=== PATIENT | female | born 2000 | race Two or more races ===

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

== ENCOUNTER → 2020-05-26 | Outpatient (REF) | payer OTHER ==
[~2020-05-26] MED LIST changes: +NEXI40CA PO; +SUCR1SS PO
== END ==
LOC: M SFHCWAGY 17:00
PROVIDERS: ATTEND Nurse Practitioner Women's Health
DX: R30.0 Dysuria (principal)

== ENCOUNTER → 2020-07-04 | Outpatient (CLI) | payer SELFPAY | LOC: M LABSMTC 10:45 | PROVIDERS: ATTEND Pediatrics | DX: Z20.828 Contact with and (suspected) exposure to other viral communicable diseases (principal) ==

== ENCOUNTER 2020-08-28 04:52 | Emergency (ER) | payer OTHER ==
[~2020-08-28] VITALS: Ht 162.6 cm; Wt 54.8 kg
[~2020-08-28 04:52] MED LIST changes: +GABA-282 PO; -GABA-843 PO
--- OUTSIDE RECORDS SUMMARY | 2020-08-28 04:56 | CCD ---
Author Author [facility] Organization [facility] Address Unknown Phone Unavailable Care Team Providers Care Faculty Member Name Role Phone [facility] JLAM Unavailable Unavailable Re-disclosure Warning The records that you are about to access may contain information from federally-assisted alcohol or drug abuse programs. If such information is present, then the following federally mandated warning applies: This information has been disclosed to you from records protected by federal confidentiality rules (42 CFR part 2). The federal rules prohibit you from making any further disclosure of this information unless further disclosure is expressly permitted by the written consent of the person to whom it pertains or as otherwise permitted by 42 CFR part 2. A general authorization for the release of medical or other information is NOT sufficient for this purpose. The Federal rules restrict any use of the information to criminally investigate or prosecute any alcohol or drug abuse patient.The records that you are about to access may contain highly sensitive health information, the redisclosure of which is protected by Article 27-F of the [facility] Public Health law. If you continue you may have access to information: Regarding HIV / AIDS; Provided by facilities licensed or operated by the [facility] Office of Mental Health; or Provided by the [facility] Office for People With Developmental Disabilities. If such information is present, then the following [facility] mandated warning applies: This information has been disclosed to you from confidential records which are protected by state law. State law prohibits you from making any further disclosure of this information without the specific written consent of the person to whom it pertains, or as otherwise permitted by law. Any unauthorized further disclosure in violation of state law may result in a fine or care home sentence or both. A general authorization for the release of medical or other information is NOT sufficient authorization for further disc losure. Family History Family Member Name Family Member Gender Family Member Status Date o f Status Description Data Source(s) Unknown Male Problem [facility] ([facility], ) Encounters Encounter Providers Location Date Indications Data Source(s ) Outpatient [address] [facility] [address] 05/26/2020 12:00:00 AM EDT eCW1 ([facility]) [facility] 01/14/2020 07:56:49 PM EDT [facility] Outpatient 10/30/2019 11:19:00 AM EDT [facility] Outpatient 10/15/2019 02:27:00 PM EDT [facility] Outpatient 10/07/2019 03:43:00 PM EST [facility] Outpatient 07/11/2019 02:16:00 PM EST [facility] Medications Medication Brand Name Start Date Product Form Dose Route Admi nistrative Instructions Pharmacy Instructions Status Indications Reaction Description Data Source(s) NITROFURANTOIN, MACROCRYSTALS 25 MG / Ni trofurantoin, Monohydrate 75 MG Oral Capsule Nitrofurantoin Monohyd Macro 100 MG Nitrofurantoin Monohyd Macro 100 MG 05/26/2020 12:00:00 AM EDT active Nitrofurantoin Monohyd Macro 100 MG eCW1 ([facility]) Insurance Providers Payer name Policy type / Coverage type Policy ID Covered libertarian ID Covered libertarian's relationship to shelley Policy Shelley Plan Information [facility] [id number] SP [id number] SELF PAY ONLY [id number] SP [id number] [facility] O [id number] S [id number] [facility] O [id number] S [id number] PMA MANAGEMENT [facility] [id number] SP [id number] PMA MANAGEMENT [facility] O [id number] O [id number] ANSI-Commercial [id number] ANSI-Medicaid [id number] [facility] [id number] Self [id number] ANSI-Commercial [id number] ANSI-Medicaid [id number] ANSI-Commercial [id number] ANSI-Medicaid [id number] ANSI-Medicaid [id number] ANSI-Commercial [id number] ANSI-Medicaid [id number] ANSI-Commercial [id number] [facility] [place] Medicaid [id number] Self [id number] ANSI-Commercial [id number] ANSI-Medicaid [id number] ANSI-Medicaid [id number] ANSI-Commercial [id number] ANSI-Commercial [id number] ANSI-Medicaid [id number] ANSI-Medicaid [id number] ANSI-Commercial [id number] JUVENAL [id number] ANSI-Medicaid [id number] ANSI-Commercial [id number] ANSI-Commercial [id number] ANSI-Medicaid [id number] ANSI-Medicaid [id number] ANSI-Commercial [id number] Results ID Date Data Source [id number] 08/20/2020 12:00:00 AM EST [facility] Name Value Range Interpretation Code Description Data Rosalinda rce(s) Supporting Document(s) SARS-CoV2 Rapid Antigen Negative [facility] This lab was ordered by [facility] and reported by [facility]. ID Date Data Source [id number] 08/17/2020 12:53:00 PM EST [facility] Name Value Range Interpretation Code Description Data Rosalinda rce(s) Supporting Document(s) SARS coronavirus 2 RNA Not Detected [facility] [place] This lab was ordered by [facility] and reported by [facility]. ID Date Data Source [id number] 08/10/2020 07:00:00 AM EST [facility] Name Value Range Interpretation Code Description Data Rosalinda rce(s) Supporting Document(s) SARS coronavirus 2 RNA Not Detected [facility] [place] This lab was ordered by [facility] and reported by [facility]. ID Date Data Source [id number] 08/03/2020 06:30:00 AM EST [facility] Name Value Range Interpretation Code Description Data Rosalinda rce(s) Supporting Document(s) SARS coronavirus 2 RNA [facility] This lab was ordered by [facility] and reported by [facility]. ID Date Data Source [id number] 07/27/2020 07:00:00 AM EST [facility] Name Value Range Interpretation Code Description Data Rosalinda rce(s) Supporting Document(s) SARS coronavirus 2 RNA [facility] This lab was ordered by [facility] and reported by [facility]. ID Date Data Source [id number] 07/26/2020 12:00:00 AM EST [facility] Name Value Range Interpretation Code Description Data Rosalinda rce(s) Supporting Document(s) SARS-CoV2 Rapid Antigen [facility] This lab was ordered by [facility] and reported by [facility]. ID Date Data Source [id number] 07/20/2020 12:14:00 PM EST [facility] Name Value Range Interpretation Code Description Data Rosalinda rce(s) Supporting Document(s) SARS coronavirus 2 RNA [facility] This lab was ordered by [facility] and reported by [facility]. ID Date Data Source [id number] 07/19/2020 12:00:00 AM EST [facility] Name Value Range Interpretation Code Description Data Rosalinda rce(s) Supporting Document(s) SARS-CoV2 Rapid Antigen [facility] This lab was ordered by [facility] and reported by [facility]. ID Date Data Source [id number] 07/04/2020 12:00:00 AM EST [facility] Name Value Range Interpretation Code Description Data Rosalinda rce(s) Supporting Document(s) 2019-nCoV RNA XXX JOE+probe-Imp [facility] This lab was ordered by [facility] and reported by [employer] [facility] ID Date Data Source [id number] 06/22/2020 10:51:00 AM EST [facility] Name Value Range Interpretation Code Description Data Rosalinda rce(s) Supporting Document(s) SARS coronavirus 2 RNA [facility] This lab was ordered by [facility] and reported by [facility]. ID Date Data Source [id number] 06/15/2020 06:30:00 AM EST [facility] Name Value Range Interpretation Code Description Data Rosalinda rce(s) Supporting Document(s) SARS coronavirus 2 RNA [facility] This lab was ordered by [facility] and reported by [facility]. ID Date Data Source [id number] 06/08/2020 09:30:00 AM EST [facility] Name Value Range Interpretation Code Description Data Rosalinda rce(s) Supporting Document(s) SARS coronavirus 2 RNA [facility] This lab was ordered by [facility] and reported by [facility]. ID Date Data Source URINE CULTURE 05/27/2020 04:15:01 AM EDT eCW1 ([facility]) Name Value Range Interpretation Code Description Data Rosalinda rce(s) Supporting Document(s) URINE CULTURE eCW1 ([facility]) Procedure Social History Code Duration Value Status Description Data Source(s ) Smoking 05/26/2020 12:00:00 AM EDT Current Smoker completed Curre nt Smoker eCW1 ([facility]) Vital Signs ID Date Data Source UNK Name Value Range Interpretation Code Description Data Source(s) Diastolic blood pressure 62 mm[Hg] 62 mm[Hg] eCW1 ([facility]) Systolic blood pressure 96 mm[Hg] 96 mm[Hg] e CW1 ([facility]) Body mass index (BMI) [Ratio] 19.94 kg/m2 19.94 kg/m2 W1 ([facility]) Body height 64.5 [in_i] 64.5 [in_i] eCW1 ([facility]) Body weight 53.52 kg 53.52 kg W1 ([facility]) Body weight 118 [lb_av] 118 [lb_av] eCW1 ([facility]) Patient Treatment Plan of Care Planned Activity Planned Date Details Description Data Source (s) NITROFURANTOIN, MACROCRYSTALS 25 MG / Ni trofurantoin, Monohydrate 75 MG Oral Capsule 05/26/2020 12:00:00 AM EDT eCW1 ([facility])
--- OUTSIDE RECORDS SUMMARY | 2020-08-28 04:56 | CCD ---
Author Author [facility] Organization [facility] Address Unknown Phone Unavailable Care Team Providers Care Project Coach Name Role Phone Cydney Vázquez Unavailable PROBLEMS Type Condition ICD9-CM Code [id number] Code Onset Dates Condition S tatus SNOMED Code Notes Problem Median arcuate ligament syndrome I77.4 Active 4637301 Problem Constipation K59.00 Active 87539805 Problem Flexural atopic dermatitis L20.89 Active 67637 3009 Problem Depression, unspecified depression type F32.9 Active 13467120 Problem Gastroesophageal reflux disease, esophagitis pre sence not specified K21.9 Active 525593982 ALLERGIES Allergen (clinical drug ingredient) Drug/Non Drug Allergy do cumented on EMR Reaction Allergy Type Onset Date Status seasonal itchy eyes, runny nose Non Drug Allergy Active ENCOUNTERS from 2000 to 2020-05-29 Encounter Location Date Provider Diagnosis [facility] [address] [place] [phone] May, Cydney Vázquez Dysuria R30.0 IMMUNIZATIONS Vaccine Route Administration Date Status Depo-Provera 150mg/1mL (Medroxy-Progestrone Acetate) IM Intr amuscular Sep 27, 2018 Administered Influenza (6mo & up) Fluzone IM Intramuscular Sep 27, 2018 Ad ministered SOCIAL HISTORY Tobacco Use: Social History Observation Description Date Details (start date - stop date) Current Smoker Sex Assigned At : Social History Observation Description Sex Assigned At Unknown Education: Question Answer Notes Level of Education: Not finished High School Language: Question Answer Notes Languages spoken: Divehi Sikhism: Question Answer Notes Sikhism 08 Baptism Sexual Hx: Question Answer Notes Had sex in the last 12 months (vaginal, oral, or anal)? Yes LMP: depo Have you ever had an STD? No with Men only Use protection? Yes How often? Some of the time Alcohol Screening: Question Answer Notes Did you have a drink containing alcohol in the past year? No Points 0 Interpretation Negative Tobacco Use: Question Answer Notes Are you a: current smoker Are you interested in quitting? Thinking about quitting REASON FOR REFERRAL No Information VITAL SIGNS Weight 118 lbs May, Weight-kg 53.52 kg May, Height 64.5 in May, BMI 19.94 kg/m2 May, Blood pressure systolic 96 mm Hg May, Blood pressure diastolic 62 mm Hg May, MEDICATIONS Medication SIG (Take, Route, Frequency, Duration) Start Date En d Date Status Tylenol Extra Strength 500 MG 1 tablet as needed Orally every 6 hrs Not-Taking Nitrofurantoin Monohyd Macro 100 MG 1 capsule at bedti hi with food Orally bid for 7 day(s) May, Active MiraLax - 1 packet mixed with 8 ounces of fluid Or ally Once a day for 30 day(s) Not-Taking Ketorolac Tromethamine 10 MG 1 tablet with food or mil k as needed Orally every 6 hrs for 5 day(s) Not-Taking Depo-Provera 150 MG/ML 1 ml Intramuscular Not-Taking Ondansetron HCl 8 MG 1 tablet as needed Orally Once a day for 30 da y(s) Not-Taking Colace 100 MG 1 capsule as needed Orally Once a day for 30 day(s) Not-Taking PROCEDURES No Information RESULTS Component Value Reference Range URINE CULTURE Reviewed date:05/27/2020 15:15:01 Interpretation:urine contaminated Performing Lab:[facility], [facility] [address] [address] , ,[facility] REASON FOR VISIT UTI MEDICAL (GENERAL) HISTORY Type Description Date Medical History Allergic rhinitis Medical History Depression Medical History Anxiety Medical History Brain MRI 04/2018 - small muc ous retention cyst left maxillary sinus, otherwise negative noncontrast brain MRI Medical History Median Arcuate Ligament Synd guerline confirmed via abdominal CTA 10/23/18 - Moderate 50-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 pylori are noted Surgical History appendix 2014 Hospitalization History As infant for observation af ter falling down flight of stairs Hospitalization History appendix Hospitalization History Median Arcuate Ligament Syndrome 10/05 6-10/23/2018 Goals Section No Information Health Concerns No Information MEDICAL EQUIPMENT No Information MENTAL STATUS No Information FUNCTIONAL STATUS No Information ASSESSMENTS Encounter Date Diagnosis Notes May, Dysuria (ICD-10 - R30.0) PLAN OF TREATMENT Medication Medication Name Sig Start Date Stop Date Nitrofurantoin Monohyd Macro 100 MG 1 capsule at bedti me with food Orally bid for 7 day(s) May, Treatment Notes Assessment Notes Clinical Notes Dysuria med use discussed, r x escribed, increase fluid intake especially water. call office if no improvement by monday am Treatment Notes Test Name Order Date UA URINALYSIS 2020-05-29 Next Appt Details prn Reason:f/u per labs Follow Up:prnf/u per labs Insurance Providers Payer Name Payer Address Payer Phone Insured Name Patient Relati onship to Insured Coverage Start Date Coverage End Date [facility] DE[facility] [address] [place] [phone] FOUZIA KATZ STAR self
[2020-08-28] MEDS ORDERED: ACETAMINOPHEN TAB 650MG DOSE (2X325MG) PO ONE (07:45)
--- NOTE | 2020-08-28 07:57 | REP ---
INDICATION: fall on ice COMPARISON: None. TECHNIQUE: AP, lateral, bilateral oblique views right wrist. FINDINGS: The carpal bones, surrounding osseous structures, soft tissues, and joint spaces are normal. There is no evidence for acute fracture or dislocation. No subcutaneous emphysema or radiodense foreign body. IMPRESSION: Normal wrist series. No acute fracture or dislocation. <Electronically signed by Daniel Lugo > 08/28/20 075
--- NOTE | 2020-08-28 08:00 | REP ---
INDICATION: fall on ice COMPARISON: None. TECHNIQUE: AP, lateral, bilateral oblique views right hand. FINDINGS: The osseous structures and joint spaces are intact and normal. There is no evidence for acute fracture or dislocation. Surrounding soft tissues are unremarkable. No subcutaneous emphysema or radiodense foreign body. IMPRESSION: . No acute fracture or dislocation. <Electronically signed by Daniel Lugo > 08/28/20 [id number]
--- OUTSIDE RECORDS SUMMARY | 2020-08-28 08:23 | CCD ---
Author Author [facility] Organization [facility] Address Unknown Phone Unavailable Care Team Providers Care Coding Advisor Name Role Phone [facility] Unavailable Unavailable Re-disclosure Warning The records [...] is protected by Article 27-F of the [facility] Public Health law. If you continue you may have access to information: Regarding HIV / AIDS; Provided by facilities licensed or operated by the [facility] Office of Mental Health; or Provided by the [facility] Office for People With Developmental Disabilities. If such information is present, then the following [facility] mandated warning applies: This information has [...] law may result in a fine or senior care sentence or both. A general authorization for the release of medical or other information is NOT sufficient authorization for further disc losure. Family History Family Member Name Family Member Gender Family Member Status Date o f Status Description Data Source(s) Unknown Male Problem [facility] ([facility], ) Encounters Encounter Providers Location Date Indications Data Source(s ) [place] [address] [facility] [address] 05/26/2020 12:00:00 AM EDT eCW1 ([facility]) Outpatient Attender: [facility] 01/14/2020 07:56:[address] [facility] Outpatient 10/30/2019 11:19:00 AM EDT [facility] Outpatient 10/15/2019 02:27:00 PM EDT [facility] 10/07/2019 03:43:00 PM EST [facility] Outpatient 07/11/2019 02:16:00 PM EST [facility] Medications Medication Brand Name Start Date Product Form Dose Route Admi nistrative Instructions Pharmacy Instructions Status Indications Reaction Description Data Source(s) NITROFURANTOIN, MACROCRYSTALS 25 MG / Ni trofurantoin, Monohydrate 75 MG Oral Capsule Nitrofurantoin Monohyd Macro 100 MG Nitrofurantoin Monohyd Macro 100 MG 05/26/2020 12:00:00 AM EDT active Nitrofurantoin Monohyd Macro 100 MG eCW1 ([facility]) Insurance Providers Payer name Policy type / Coverage type Policy ID Covered republican ID Covered republican's relationship to shelley Policy Shelley Plan Information JUVENAL [id number] SP [id number] SELF PAY ONLY [id number] SP [id number] [facility] O [id number] S [id number] [facility] O [id number] S [id number] PMA MANAGEMENT [facility] [id number] SP [id number] PMA MANAGEMENT [facility] O [id number] O [id number] ANSI-Commercial [id number] ANSI-Medicaid [id number] [facility] [id number] Self [id number] 600 ANSI-Commercial [id number] ANSI-Medicaid [id number] ANSI-Commercial [id number] ANSI-Medicaid [id number] ANSI-Medicaid [id number] ANSI-Commercial [id number] ANSI-Medicaid [id number] ANSI-Commercial [id number] [facility] [place] Medicaid [id number] Self [id number] ANSI-Commercial [id number] ANSI-Medicaid [id number] ANSI-Medicaid [id number] ANSI-Commercial [id number] ANSI-Commercial [id number] ANSI-Medicaid [id number] ANSI-Medicaid [id number] ANSI-Commercial [id number] JUVENAL [id number] 600 ANSI-Medicaid [id number] ANSI-Commercial [id number] ANSI-Commercial [id number] ANSI-Medicaid [id number] ANSI-Medicaid [id number] ANSI-Commercial [id number] Results ID Date Data Source [id number] 08/20/2020 12:00:00 AM EST [facility] Name Value Range Interpretation Code Description Data Rosalinda rce(s) Supporting Document(s) SARS-CoV2 Rapid Antigen Negative [facility] This lab was ordered by [facility] and reported by [facility]. ID Date Data Source [id number] 08/17/2020 12:53:00 PM EST [facility] Name Value Range Interpretation Code Description Data Rosalinda rce(s) Supporting Document(s) SARS coronavirus [address] [facility] [place] This lab was ordered by [facility] and reported by [facility]. ID Date Data Source [id number] 08/10/2020 07:00:00 AM EST [facility] Name Value Range Interpretation Code Description Data Rosalinda rce(s) Supporting Document(s) SARS coronavirus 2 RNA Not Detected [facility] [place] This lab was ordered by [facility] and reported by [facility]. ID Date Data Source [id number] 08/03/2020 06:30:00 AM EST [facility] Name Value Range Interpretation Code Description Data Rosalinda rce(s) Supporting Document(s) SARS coronavirus 2 RNA [facility] This lab was ordered by [facility] and reported by [facility]. ID Date Data Source [id number] 07/27/2020 07:00:00 AM EST [facility] Name Value Range Interpretation Code Description Data Rosalinda rce(s) Supporting Document(s) SARS coronavirus 2 RNA [facility] This lab was ordered by [facility] and reported by [facility]. ID Date Data Source [id number] 07/26/2020 12:00:00 AM EST [facility] Name Value Range Interpretation Code Description Data Rosalinda rce(s) Supporting Document(s) SARS-CoV2 Rapid Antigen [facility] This lab was ordered by [facility] and reported by [facility]. ID Date Data Source [id number] 07/20/2020 12:14:00 PM EST [facility] Name Value Range Interpretation Code Description Data Rosalinda rce(s) Supporting Document(s) SARS coronavirus 2 RNA [facility] This lab was ordered by [facility] and reported by [facility]. ID Date Data Source [id number] 07/19/2020 12:00:00 AM EST [facility] Name Value Range Interpretation Code Description Data Rosalinda rce(s) Supporting Document(s) SARS-CoV2 Rapid Antigen [facility] This lab was ordered by [facility] and reported by [facility]. ID Date Data Source [id number] 07/04/2020 12:00:00 AM EST [facility] Name Value Range Interpretation Code Description Data Rosalinda rce(s) Supporting Document(s) 2019-nCoV RNA XXX JOE+probe-Imp [facility] This lab was ordered by [facility] and reported by [facility] ID Date Data Source [id number] 06/22/2020 10:51:00 AM EST [facility] Name Value Range Interpretation Code Description Data Rosalinda rce(s) Supporting Document(s) SARS coronavirus 2 RNA [facility] This lab was ordered by [facility] and reported by [facility]. ID Date Data Source [id number] 06/15/2020 06:30:00 AM EST [facility] Name Value Range Interpretation Code Description Data Rosalinda rce(s) Supporting Document(s) SARS coronavirus 2 RNA [facility] This lab was ordered by [facility] and reported by [facility]. ID Date Data Source [id number] 06/08/2020 09:30:00 AM EST [facility] Name Value Range Interpretation Code Description Data Rosalinda rce(s) Supporting Document(s) SARS coronavirus 2 RNA [facility] This lab was ordered by [facility] and reported by [facility]. ID Date Data Source URINE CULTURE 05/27/2020 04:15:01 AM EDT eCW1 ([facility]) Name Value Range Interpretation Code Description Data Rosalinda rce(s) Supporting Document(s) URINE CULTURE eCW1 ([facility]) Procedure Social History Code Duration Value Status Description Data Source(s ) Smoking 05/26/2020 12:00:00 AM EDT Current Smoker completed Curre nt Smoker eCW1 ([facility]) Vital Signs ID Date Data Source UNK Name Value Range Interpretation Code Description Data Source(s) Diastolic blood pressure 62 mm[Hg] 62 mm[Hg] eCW1 ([facility]) Systolic blood pressure 96 mm[Hg] 96 mm[Hg] e CW1 ([facility]) Body mass index (BMI) [Ratio] 19.94 kg/m2 19.94 kg/m2 W1 ([facility]) Body height 64.5 [in_i] 64.5 [in_i] eCW1 ([facility]) Body weight 53.52 kg 53.52 kg W1 ([facility]) Body weight 118 [lb_av] 118 [lb_av] eCW1 ([facility]) Patient Treatment Plan of Care Planned Activity Planned Date Details Description Data Source (s) NITROFURANTOIN, MACROCRYSTALS 25 MG / Ni trofurantoin, Monohydrate 75 MG Oral Capsule 05/26/2020 12:00:00 AM EDT eCW1 ([facility])
[2020-08-28 08:27] VITALS: BP 101/67
== END 2020-08-28 08:29 | disposition home or self-care (01) ==
LOC: M ED 04:52
DX: S63.501A Unspecified sprain of right wrist, initial encounter (principal); W00.0XXA Fall on same level due to ice and snow, initial encounter; Y92.014 Private driveway to single-family (private) house as the place of occurrence of the external cause; Y93.9 Activity, unspecified; Y99.9 Unspecified external cause status; Z88.1 Allergy status to other antibiotic agents

== ENCOUNTER 2020-12-18 14:45 | Emergency (ER) | payer OTHER, SELFPAY ==
[~2020-12-18] VITALS: Ht 165.1 cm; Wt 53.9 kg
[2020-12-18] MEDS ORDERED: NS 1,000 ML IV ONE (16:50)
[2020-12-18] MEDS ORDERED: cefTRIAXone SOD 1 GM in D5W MINI-BAG PLUS 50 ML IV ONE (17:00)
[2020-12-18 17:23] LABS: BASO % 0.2 % (0.0-1.0); EOS % 0.4 % (0.0-3.0); HEMATOCRIT 43.2 % (36.0-47.0); HEMOGLOBIN 14.1 g/dl (12.0-15.5); LYMPH # 1.2 10^3/uL (1.5-5.0); LYMPH % 12.4 % (24.0-44.0); MEAN CORPUSCULAR HEMOGLOBIN 30.8 pg (27.0-33.0); MEAN CORPUSCULAR HGB CONC 32.6 g/dl (32.0-36.5); MEAN CORPUSCULAR VOLUME 94.3 fl (80.0-96.0); MONO # 0.8 10^3/uL (0.0-0.8); MONO % 8.4 % (2.0-8.0); NEUTROPHILS # 7.5 10^3/uL (1.5-8.5); NEUTROPHILS % 78.3 % (36.0-66.0); RED BLOOD COUNT 4.58 10^6/uL (4.00-5.40); WHITE BLOOD COUNT 9.6 10^3/uL (4.0-10.0)
[2020-12-18 17:50] LABS: BLOOD UREA NITROGEN 12 MG/DL (7-18); CALCIUM LEVEL 9.3 MG/DL (8.5-10.1); CARBON DIOXIDE LEVEL 29 MEQ/L (21-32); CHLORIDE LEVEL 105 MEQ/L (98-107); CREATININE FOR GFR 0.81 MG/DL (0.55-1.30); GLUCOSE, FASTING 91 MG/DL (70-100); POTASSIUM SERUM 4.2 MEQ/L (3.5-5.1); SODIUM LEVEL 139 MEQ/L (136-145)
[2020-12-18] MEDS ORDERED: KETOROLAC 30 MG/ML 1ML VIAL IV ONE (18:00)
--- NOTE | 2020-12-18 18:20 | REP ---
INDICATION: right flank pain. COMPARISON: None. TECHNIQUE: Real-time sonographic evaluation of the kidneys is performed. FINDINGS: Renal cortical echogenicity pattern is normal bilaterally and contours are smooth. There is no evidence of hydronephrosis, cyst, mass, or calculus in either kidney. The right kidney measures 9.6 x 4.9 x 3.9 cm. Left renal dimensions are 9.1 x 4.7 x 4.3 cm. Urinary bladder is not well distended and not well evaluated. IMPRESSION: Negative renal ultrasound. <Electronically signed by Timothy Khoury > 12/18/20 [id number]
[2020-12-18] MEDS ORDERED: CIPR-249 PO (19:11)
[2020-12-18 19:55] VITALS: BP 113/58
== END 2020-12-18 21:14 | disposition home or self-care (01) ==
LOC: M ED 14:45
DX: N39.0 Urinary tract infection, site not specified (principal); Z88.1 Allergy status to other antibiotic agents
CPT/HCPCS: 76775; 80048; 81001; 84702; 85025; 87088; 87186; 96365; 96375; 99284; J0696; J1885

== ENCOUNTER 2022-12-17 17:42 | Emergency (ER) | payer MEDICAID, OTHER, SELFPAY ==
[~2022-12-17] VITALS: Ht 162.6 cm; Wt 54.7 kg
[~2022-12-17 17:42] MED LIST changes: +CIPR-249 PO
[2022-12-17] MEDS ORDERED: CYCL-707 (17:52)
[2022-12-17] MEDS ORDERED: ONDANSETRON 4MG ORAL DISINTEGRATING TAB PO ONE (19:25)
[2022-12-17] MEDS ORDERED: ALPRAZolam 0.5 MG TAB PO ONE (19:25)
[2022-12-17 20:41] VITALS: BP 106/57
== END 2022-12-17 20:42 | disposition home or self-care (01) ==
LOC: M ED 17:42
DX: F41.0 Panic disorder [episodic paroxysmal anxiety] (principal); R11.2 Nausea with vomiting, unspecified; M79.10 Myalgia, unspecified site; F17.200 Nicotine dependence, unspecified, uncomplicated; Z88.1 Allergy status to other antibiotic agents; Z79.899 Other long term (current) drug therapy

== ENCOUNTER → 2025-06-10 | Outpatient (RCR) ==
[~2025-06-10] MED LIST changes: +CYCL-707; -CYCL5TAB PO; +CYCL5TAB4 PO; +GABA-1172 PO; -GABA-282 PO
== END ==
LOC: M EMPSKH 06-04 15:10
PROVIDERS: ATTEND Family Medicine
DX: Z20.828 Contact with and (suspected) exposure to other viral communicable diseases (principal)